=== PATIENT | male | born 1950 | race American Indian/Alaskan Native ===

== ENCOUNTER 2017-01-05 10:04 | Emergency (ER) | payer MEDICARE ==
[2017-01-05 10:47] LABS: Basophils % (Auto) 1.1 % (0.0-1.8); Eosinophils % (Auto) 3.8 % (0.0-4.3); Hematocrit 42.2 % (35.5-45.6); Hemoglobin 13.7 gm/dl (11.8-15.2); Mean Corpuscular HGB Conc 33 % (32-34); Mean Corpuscular Hemoglobin 28 pg (28-32); Mean Corpuscular Volume 85 fl (84-94); Platelet Count 223 K/mm3 (140-440); Red Blood Count 4.99 M/mm3 (3.65-5.03); Red Cell Distribution Width 14.2 % (13.2-15.2)
[2017-01-05 11:02] LABS: Anion Gap 17 mmol/L; Blood Urea Nitrogen 9 mg/dL (9-20); Calcium 8.9 mg/dL (8.4-10.2); Carbon Dioxide 26 mmol/L (22-30); Chloride 100.8 mmol/L (98-107); Glucose 107 mg/dL (75-100); Potassium 4.5 mmol/L (3.6-5.0); Sodium 139 mmol/L (137-145)
--- NOTE | 2017-01-05 14:16 | Emergency Department Report ---
- General Chief Complaint: Wound/Laceration Stated Complaint: SPIDER BITE Time Seen by Provider: 01/05/17 14:05 Source: patient Mode of arrival: Ambulatory Limitations: No Limitations - History of Present Illness Initial Comments: This is an individual who thought he might be bit by a bug yesterday. He noted today his arm has significant redness and tenderness around it. He denies any fevers. -: Sudden Location: other Extremity Location: Right: Arm Place: outdoors Treatments Prior to Arrival: cold therapy - Related Data Previous Rx's Medication Instructions Recorded Last Taken Type Cephalexin [Keflex] 500 mg PO TID #21 capsule 10/12/14 Unknown Rx Amoxicillin/K Clav Tab [Augmentin 1 each PO Q12HR #14 tablet 01/05/17 Unknown Rx 500 MG TAB] Hydrochlorothiazide [HCTZ] 25 mg PO QDAY #30 tablet 01/05/17 Unknown Rx Allergies Allergy/AdvReac Type Severity Reaction Status Date / Time No Known Allergies Allergy Unverified 10/12/14 18:35 ED Review of Systems ROS: Stated complaint: SPIDER BITE Other details as noted in HPI Constitutional: denies: chills, fever Eyes: denies: eye pain, eye discharge, vision change ENT: denies: ear pain, throat pain Respiratory: denies: cough, shortness of breath, wheezing Cardiovascular: denies: chest pain, palpitations Endocrine: no symptoms reported Gastrointestinal: denies: abdominal pain, nausea, diarrhea Genitourinary: denies: urgency, dysuria Musculoskeletal: denies: back pain, joint swelling, arthralgia Skin: lesions (as per HPI). denies: rash Neurological: denies: headache, weakness, paresthesias Psychiatric: denies: anxiety, depression Hematological/Lymphatic: denies: easy bleeding, easy bruising ED Past Medical Hx - Past Medical History Previous Medical History?: No - Surgical History Past Surgical History?: Yes Additional Surgical History: hernia - Social History Smoking Status: Current Every Day Smoker Substance Use Type: Alcohol - Medications Home Medications: Home Medications Medication Instructions Recorded Confirmed Last Taken Type Cephalexin [Keflex] 500 mg PO TID #21 capsule 10/12/14 Unknown Rx Amoxicillin/K Clav Tab [Augmentin 1 each PO Q12HR #14 tablet 01/05/17 Unknown Rx 500 MG TAB] Hydrochlorothiazide [HCTZ] 25 mg PO QDAY #30 tablet 01/05/17 Unknown Rx ED Physical Exam - General Limitations: No Limitations General appearance: alert, in no apparent distress - Head Head exam: Present: atraumatic, normocephalic - Eye Eye exam: Present: normal appearance - ENT ENT exam: Present: mucous membranes moist - Neck Neck exam: Present: normal inspection - Respiratory Respiratory exam: Present: normal lung sounds bilaterally. Absent: respiratory distress - Cardiovascular Cardiovascular Exam: Present: regular rate, normal rhythm. Absent: systolic murmur, diastolic murmur, rubs, gallop - Rectal Rectal exam: Present: deferred - Extremities Exam Extremities exam: Present: other (right bicep region with area of tenderness on the lateral aspect. There is a large area of erythema surrounding this as well. No fluctuance is noted minimal induration is appreciated. No lymphangina noted. Good distal radial pulses are noted and equal bilaterally.) - Back Exam Back exam: Present: normal inspection - Neurological Exam Neurological exam: Present: alert, oriented X3 - Psychiatric Psychiatric exam: Present: normal affect, normal mood - Skin Skin exam: Present: warm, dry, intact, normal color. Absent: rash ED Course Vital Signs 01/05/17 01/05/17 01/05/17 09:49 10:00 10:11 Temperature 97.8 F Pulse Rate 57 L 57 L 77 Respiratory 14 14 18 Rate Blood Pressure 99/53 99/53 186/118 Blood Pressure [Left] O2 Sat by Pulse 99 99 100 Oximetry 01/05/17 01/05/17 01/05/17 10:15 10:30 10:45 Temperature Pulse Rate 84 58 L 57 L Respiratory 15 11 L 11 L Rate Blood Pressure 119/69 119/69 96/49 Blood Pressure [Left] O2 Sat by Pulse 100 100 98 Oximetry 01/05/17 01/05/17 01/05/17 13:29 13:35 13:45 Temperature Pulse Rate 79 Respiratory 18 Rate Blood Pressure 187/117 193/103 Blood Pressure 187/118 [Left] O2 Sat by Pulse Oximetry 01/05/17 01/05/17 01/05/17 13:53 14:00 14:15 Temperature Pulse Rate Respiratory Rate Blood Pressure 187/100 196/106 Blood Pressure 193/103 [Left] O2 Sat by Pulse Oximetry - Reevaluation(s) Reevaluation #1: I suspect bug bite with subsequent cellulitis. We'll treat for possible allergic reaction as well. Patient instructed take Benadryl as well as antibiotics. Safe for home. ED Medical Decision Making - Lab Data Result diagrams: 01/05/17 10:35 01/05/17 10:35 Critical care attestation.: If time is entered above; I have spent that time in minutes in the direct care of this critically ill patient, excluding procedure time. ED Disposition Clinical Impression: Cellulitis Qualifiers: Site of cellulitis: extremity Site of cellulitis of extremity: upper extremity Laterality: right Qualified Code(s): L03.113 - Cellulitis of right upper limb Hypertension Qualifiers: Hypertension type: essential hypertension Qualified Code(s): I10 - Essential ( primary) hypertension Disposition: DISCHARGED TO HOME OR SELFCARE Is pt being admited?: No Does the pt Need Aspirin: No Condition: Stable Instructions: Cellulitis (ED), Hypertension (ED) Prescriptions: Amoxicillin/K Clav Tab [Augmentin 500 MG TAB] 1 each PO Q12HR #14 tablet Hydrochlorothiazide [HCTZ] 25 mg PO QDAY #30 tablet Referrals: PRIMARY CARE, [Primary Care Provider] - 3-5 Days Time of Disposition: 14:19
[2017-01-05] MEDS ORDERED: AUGMENTIN 875 MG PO ONE (14:18)
[2017-01-05 14:50] VITALS: BP 196/106
== END 2017-01-05 14:30 | disposition home or self-care (01) ==
LOC: ED 10:04
DX: L03.113 Cellulitis of right upper limb (principal); I10 Essential (primary) hypertension; F17.200 Nicotine dependence, unspecified, uncomplicated
CPT/HCPCS: 36415; 80048; 85025; 93005; 93010